=== PATIENT | male | born 1960 | race African-American/Black ===

== ENCOUNTER 2023-06-17 13:44 | Outpatient (CLI) | payer OTHER, SELFPAY ==
--- NOTE | ~2023-06-17 | MR_ITS ---
EXAMINATION: MR cervical spine wo con DATE: 06/17/2023 14:29 INDICATION: Chronic compression fracture of cervical spine. Left-sided weakness. TECHNIQUE: Magnetic resonance imaging (MRI) of the cervical spine was performed without intravenous c ontrast. COMPARISON: None FINDINGS: There is 2 mm retrolisthesis of C5 on C6 and C6 on C7. There is mild chronic height loss of C5 vertebral body. There is moderately decreased disc height at C5-C6 and severely decreased disc he ight at C6-C7. The spinal cord signal intensity is normal. The following disc levels are specifically discussed: C2-C3: There is a central protrusion with annular fissure. There is mild right and moderate left unco vertebral joint osteoarthritis. There is severe right and mild left facet joint osteoarthritis. There is mild left neural foraminal stenosis. There is mild central canal stenosis. C3-C4: The disc does not extend beyond the endplate margin. There is no uncovertebral joint osteoarth ritis. There is moderate right and mild left facet joint osteoarthritis. There is mild right neural f oraminal stenosis. There is no central canal stenosis. C4-C5: The disc does not extend beyond the endplate margin. There is no uncovertebral joint osteoarth ritis. There is moderate right and mild left facet joint osteoarthritis. There is mild right neural f oraminal stenosis. There is no central canal stenosis. C5-C6: The disc is bulging. There is severe bilateral uncovertebral joint osteoarthritis. There is mo derate and mild left facet joint osteoarthritis. There is moderate right and severe left neural teresa inal stenosis. There is moderate central canal stenosis with ventral and dorsal indentation of the sp inal cord. C6-C7: The disc is bulging. There is severe bilateral uncovertebral joint osteoarthritis. There is mi ld bilateral facet joint osteoarthritis. There is mild right and moderate left neural foraminal steno sis. There is mild central canal stenosis with ventral indentation of the spinal cord. C7-T1: The disc does not extend beyond the endplate margin. There is no uncovertebral joint osteoarth ritis. There is mild bilateral facet joint osteoarthritis. There is no neural foraminal stenosis. The re is no central canal stenosis. IMPRESSION: 1. Severe cervical spondylosis. Reviewed, dictated and finalized at location E.
== END 2023-06-17 13:45 | disposition home or self-care (01) ==
DX: M43.02 Spondylolysis, cervical region (principal)
CPT/HCPCS: 72141

== ENCOUNTER 2023-12-15 01:32 | Day surgery (SDC) | payer OTHER, SELFPAY ==
--- NOTE | 2023-11-29 07:54 | P.HP_ITS ---
History of Present Illness History of Present Illness Consent: Risks, benefits, and alternatives have been discussed and questions answered. Patient agrees to proceed with procedure. Chief complaint: nocturia poor urinary stream Narrative: Dionicio Thompson is a 63 year old male follow-up several year history of progressive obstructive and irritable voiding symptoms, most troubled by splaying of urinary stream. This is failed to respond to medical therapy for outlet obstruction. After discussion of options he is agreeable to cystoscopy with urethral dilatation under sedation. He is aware of the risks including, but not limited to, failure to identify and control his voiding symptoms, recurrent urethral stricture, urethral injury and need for short-term catheterization Review of Systems Cardiovascular: Cardiovascular: Denies chest pain, Denies lightheadedness, Denies palpitations and Denies dyspnea Respiratory: Respiratory: Denies dyspnea Gastrointestinal: Gastrointestinal: Denies diarrhea, Denies nausea and Denies vomiting Genitourinary: Genitourinary: Denies hematuria and Denies dysuria Endocrine: Endocrine: Denies palpitations Exam Const: General: no acute distress Resp: Effort & Inspection: normal respiratory effort GI: Inspection: non-distended GI Palp: No abdominal tenderness and No Gu arding due to palpation present (GI) Auscultation: normal bowel sounds Assessment and Plan Assessment and plan (1) Urethral stricture: Code(s): N35.919 - Unspecified urethral stricture, male, unspecified site Status: Acute Assessment and Plan: * Cystoscopy, possible urethral dilatation
[2023-12-06 12:31] VITALS: BMI 36.6
--- NOTE | 2023-12-06 12:58 | PC.NURSE ---
Report to hospital entrance [address] just right of the green pavilion located off [facility], at time _0630_ on date _[id number]_. Planned Procedure Time: _0830_.? Time changes happen often and if your time is changed the preop area will call you the afternoon before. - You and your visitor will be asked to self-screen and do not enter if you have any COVID symptoms. Please call surgeon if you need to reschedule. - A mask is optional within the hospital at this time. Patients may have clear liquids (water, carbonated beverages, clear teas, apple juice) until 3 hours prior to surgery with a maximum of 20 ounces. - No food from midnight until time of surgery and no smoking Take only the following medications with a SIP of water on the morning of surgery: ___Amlodipine, Buspirone, Duloxetine, Mometesone inhaler and Tiotropium bromide inhaler. Albuterol if needed.___ DO NOT STOP ANY OF YOUR OTHER PRESCRIPTION MEDICATIONS PRIOR TO SURGERY EXCEPT THE FOLLOWING Medications to discontinue per physician ___None____ Please no make-up, nail jordanian, hairspray, perfume, deodorant, or body powder the day of surgery.? No jewelry (including any body piercings) or valuables the day of surgery, leave them at home.? Please take a shower or bath the night before, or the morning of, surgery with an antibacterial soap.? Wear comfortable, loose fitting clothing.? - Jewelry must be removed prior to entering the operating room.? Rings and piercings that are not removed may be cut off. - The hospital will not accept responsibility for valuables.? - Please leave all valuables, including medications, at home the day of surgery. If you are going home after surgery, a licensed production truck driver must drive you home.? - NO public transportation without another adult if you receive anesthesia. - We recommend that an adult stay with you for 24 hours following discharge. - We also recommend that you do not drive, make important decision, drink alcoholic beverages, or take any drugs that were not prescribed by your health care provider for at least 24 hours after your discharge time. Follow any additional instructions given to you from your surgeon. Telephone instructions given to _Anna_and asked if any additional questions and then verbalized understanding. Patient advised to call surgeon office or pre surgery nurse liaison [phone] if any additional questions.
[2023-12-15] VITALS (8 sets, daily range): BP systolic 101–147; BP diastolic 63–80; PULSE 61–73; RESP 12–16; TEMP 36.5–36.6; O2SAT 96–100
--- NOTE | 2023-12-15 06:44 | WPDHPUPDATE1 ---
History and Physical Update Update Date/Time: 12/15/23 06:44 History and Physical has been reviewed, including an updated exam of the patient. There are NO changes in the patient's condition. Risks, benefits, and alternatives have been discussed and questions answered. Patient agrees to proceed with procedure.
[2023-12-15] MEDS: LACTATED RINGERS 1,000 ML 30 ML IV CONT (07:00)
[2023-12-15 07:22] LABS: Anion Gap 8 mmol/L (4-12); Blood Urea Nitrogen 11 mg/dL (9-20); Calcium 8.8 mg/dL (8.4-10.2); Carbon Dioxide 27 mmol/L (22-30); Chloride 101 mmol/L (98-107); Estimated CRCL calculation 139 ml/min; Estimated Glomerular Filt Rate > 60; Glucose 91 mg/dL (65-110); Potassium 4.3 mmol/L (3.4-5.0); Sodium 136 mmol/L (137-145)
--- NOTE | 2023-12-15 08:31 | WPDANESEPPF ---
Anes - Initial Pre Proc Eval Procedure: Operation Date: 12/15/23 08:30 Proposed Procedures p Cystoscopy, Urethral Dilatation - Reginald Kruse MD Date/Time: 12/15/23 08:31 Surgeon: Reginald Kruse MD Pre Op Diagnosis: nocturia poor urinary stream Patient Data Age: 63 Gender: M Height: 1.8 m Weight: 118 kg Last Vital Signs Temp 97.8 F 12/15/23 07:26 Pulse 65 12/15/23 07:26 Resp 16 12/15/23 07:26 BP 146/77 H 12/15/23 07:26 Pulse Ox 96 12/15/23 07:26 O2 Del Method Room Air 12/15/23 07:26 Allergies Allergy/AdvReac Type Severity Reaction Status Date / Time lactose Allergy Unknown Unknown Verified 12/06/23 12:46 Home Medications Medication Instructions Recorded Confirmed Type albuterol sulfate 90 mcg/actuation 2 puff inhalation QID PRN Dyspnea 12/06/23 12/06/23 History aerosol inhaler amlodipine 10 mg tablet 10 mg PO DAILY 12/06/23 12/06/23 History aspirin 81 mg tablet 81 mg PO DAILY 12/06/23 12/06/23 History atorvastatin 10 mg tablet 10 mg PO HS 12/06/23 12/06/23 History buspirone 15 mg tablet 15 mg PO BID 12/06/23 12/06/23 History diclofenac sodium 1 % topical gel 2 g topical QID PRN Pain 12/06/23 12/06/23 History duloxetine 60 mg capsule,delayed 60 mg PO DAILY 12/06/23 12/06/23 History release ibuprofen 600 mg tablet 600 mg PO BID PRN Pain 12/06/23 12/06/23 History lidocaine 5 % topical patch 1 patch topical DAILY 12/06/23 12/06/23 History lisinopril 10 mg tablet 10 mg PO DAILY 12/06/23 12/06/23 History metformin 500 mg 24 hr 500 mg PO BID 12/06/23 12/06/23 History tablet,extended release (gastric retention) mometasone 220 mcg/actuation(60 1 inh inhalation BID 12/06/23 12/06/23 History doses) breath activated powder inhaler tamsulosin 0.4 mg capsule 0.4 mg PO HS 12/06/23 12/06/23 History tiotropium bromide 18 mcg capsule 1 cap inhalation DAILY 12/06/23 12/06/23 History with inhalation device Laboratory Tests 12/15/23 07:07 Sodium 136 L mmol/L (137-145) Potassium 4.3 mmol/L (3.4-5.0) Chloride 101 mmol/L (98-107) Carbon Dioxide 27 mmol/L (22-30) Anion Gap 8 mmol/L (4-12) BUN 11 mg/dL (9-20) Creatinine 0.60 L mg/dL (0.7-1.3) Estim Creat Clear Calc 139 ml/min Estimated GFR > 60 (59 - ) Glucose 91 mg/dL (65-110) Calcium 8.8 mg/dL (8.4-10.2) Patient hx anesthesia problems: none Family hx anesthesia problems: none Results Review: All pre-operative results and documents have been reviewed as part of the pre-operative evaluation. [facility] Social History Social History Living arrangements: incarcerated Anes - Eval Final PreProcedure Day of Procedure 12/15/23 08:31 Patient weight: obese Heart: regular rate and rhythm Lungs: clear to auscultation Airway: Mallampati scale class II Neurological: alert and oriented Last oral intake: >/= 8 hours ASA classification: III Emergent: no Anesthetic plan: proceed Anesthesia type and monitoring: general LMA and standard monitoring Results Review: All pre-operative results and documents have been reviewed as part of the pre-operative evaluation. HTN, hyperlipidemia, DM, pt states that he is active walking, no cp or sob. Prev used a cane due to back pains, now improved and without need for assistive device. Informed Consent: The patient's anesthetic plan and its attendant risks and benefits were discussed with the patient/family/POA. Questions were solicited and answers provided to the satisfaction of the patient/family/POA.
[2023-12-15] MEDS: ceFAZolin 2 GM/D5W 50 ML 2 GM/50 ML BAG IVPB (08:35)
--- NOTE | 2023-12-15 08:58 | W.PM.PROC2 ---
Procedure Note - Detailed Date of Procedure 12/15/23 Pre-op Diagnosis Nocturia poor urinary stream Post-op Diagnosis Other (1. Wide-caliber bulbous urethral stricture 2. Trilobar hyperplasia with a moderate-sized median) Procedure Performed Cystoscopy, urethral dilatation Surgeon Reginald Kruse MD Anesthesia General Description of Procedure Patient is brought to the op suite was prepped draped in routine sterile fashion after the uneventful induction of a general LMA anesthetic. Cystoscopy was undertaken with a 19 F rigid cystoscope. He has a wide caliber bulbous urethral stricture which was 1st dilated 18-28 F using Aayush sounds. Repeat cystourethroscopy additionally shows significant prostatic hyperplasia with a prominent median lobe. This is likely contributing, to some extent, to his irritable voiding symptoms. The bladder itself is normal without mucosal hyperemia or rigo neoplasm. There was no intravesical foreign body. Has a single orthotopic ureteral orifice with clear efflux. Patient should continue tamsulosin for his BPH. If voiding symptoms progress he would likely be a good candidate TURP. Drains No Packing No Pathology None sent Complications No immediate complications Condition Stable Disposition PACU
[2023-12-15 09:12] LABS: Glucose Point of Care 98 mg/dl (65-105)
== END 2023-12-15 10:33 | disposition home or self-care (01) ==
PROVIDERS: Visit Provider Urology
PROC: 0T7D8ZZ Dilation of Urethra, Via Natural or Artificial Opening Endoscopic (ICD-10-PCS; CPT 52281; principal; 2023-12-15 08:30)
DX: N35.812 Other bulbous urethral stricture, male (principal); N40.0 Benign prostatic hyperplasia without lower urinary tract symptoms; E66.9 Obesity, unspecified; Z68.36 Body mass index [BMI] 36.0-36.9, adult; Z79.51 Long term (current) use of inhaled steroids; Z79.82 Long term (current) use of aspirin; Z79.1 Long term (current) use of non-steroidal anti-inflammatories (NSAID); Z79.84 Long term (current) use of oral hypoglycemic drugs
CPT/HCPCS: 52281; 36415; 80048; 82948; J0690; J3010; J7120

== ENCOUNTER 2024-09-20 05:24 | Day surgery (SDC) | payer OTHER, SELFPAY ==
--- NOTE | 2024-09-11 07:09 | P.HP_ITS ---
H&P: HPI History of Present Illness Date/Time: 09/11/24 07:09 Chief Complaint: Difficulty urinating Narrative: 09/2023: ?FOV in [facility]: Hx. retention several years ago. ?Ongoing hesitancy, splayed stream and nocturia x8-10. ?Sx. refractory to Finasteride (took > 1-year) and currently tamsulosin ?Hx. chlamydia ?and syphilis in past 11/2023: ?Cysto/urethral dilatation ?- wide-caliber bulbous stricture ?- moderate median lobe and lateral lobe BPH -> probable source of LUTS (to some extent Discussion was undertaken today regarding surgical management of bladder outlet obstruction due to BPH.? He is aware of alternative options including watchful waiting and medical management.? We discussed surgical options for BPH including minimally invasive thermotherapy (traditional microwave and?Prolieve), laser prostatectomy(Indigo and contact lasers such as Green Light), TUNA and TURP.? We discussed risks associated with each including erectile dysfunction, retrograde ejaculation, urinary incontinence, post-operative bleeding and persistant irritable voiding symptoms. Note:?Patient with both outlet obstructive and irritable voiding symptoms. ?Prior cystoscopy showed a wide caliber bulbous urethral stricture and trilobar hyperplasia of the prostate with a moderate-sized median lobe. ?Unfortunately, he has had little improvement in voiding symptoms following urethral dilatation in November 2023 ?and initiation of tamsulosin. ?We discussed alternative treatments for BPH with a focus on TURP, particularly in light of his moderate- sized median lobe. ?He is aware of the potential risks including, but not limited to, postoperative hematuria and retrograde ejaculation. ?We will make arrangements for TURP. Review of Systems Review of Systems: All systems reviewed & are unremarkable except as noted in HPI and below PMFSH Social History Social History Smoking status: Former smoker Living arrangements: incarcerated Meds Home Medications and Allergies Home Medications ?Medication ?Instructions ?Recorded ?Confirmed ?Type albuterol sulfate 90 mcg/actuation 2 puff inhalation QID PRN Dyspnea 12/06/23 0 12/06/23 History aerosol inhaler amlodipine 10 mg tablet 10 mg PO DAILY 12/06/23 12/06/23 History aspirin 81 mg tablet 81 mg PO DAILY 12/06/23 12/06/23 History atorvastatin 10 mg tablet 10 mg PO HS 12/06/23 12/06/23 History buspirone 15 mg tablet 15 mg PO BID 12/06/23 12/06/23 History diclofenac sodium 1 % topical gel 2 g topical QID PRN Pain 12/06/23 12/06/23 History duloxetine 60 mg capsule,delayed 60 mg PO DAILY 12/06/23 12/06/23 History release ibuprofen 600 mg tablet 600 mg PO BID PRN Pain 12/06/23 12/06/23 History lidocaine 5 % topical patch 1 patch topical DAILY 12/06/23 12/06/23 History lisinopril 10 mg tablet 10 mg PO DAILY 12/06/23 12/06/23 History metformin 500 mg 24 hr 500 mg PO BID 12/06/23 12/06/23 History tablet,extended release (gastric retention) mometasone 220 mcg/actuation(60 1 inh inhalation BID 12/06/23 12/06/23 History doses) breath activated powder inhaler tamsulosin 0.4 mg capsule 0.4 mg PO HS 12/06/23 12/06/23 History tiotropium bromide 18 mcg capsule 1 cap inhalation DAILY 12/06/23 12/06/23 History with inhalation device Allergies Allergy/AdvReac Type Severity Reaction Status Date / Time lactose Allergy Unknown Unknown Verified 08/23/24 13:17 Exam Const: General: no acute distress Resp: Effort & Inspection: normal respiratory effort GI: Inspection: non-distended GI Palp: No abdominal tenderness and No Guarding due to palpation present (GI) Auscultation: normal bowel sounds Assessment and Plan Assessment and plan (1) BPH loc w urin obs/LUTS: Code(s): N40.1 - Benign prostatic hyperplasia with lower urinary tract symptoms Status: Acute Assessment and Plan: * TURP
[2024-09-18 08:43] VITALS: BMI 37.1
--- NOTE | 2024-09-18 09:03 | PC.NURSE ---
Report to hospital entrance 7 to the right of the green pavilion by 's parking located off [facility], at time _0600_ on date _[id number]_. Planned Procedure Time: _0730_.? Patient is scheduled to stay overnight after surgery. Time changes happen often and if your time is changed the preop area will call you the afternoon before. - You and your visitor will be asked to self-screen and do not enter if you have any COVID symptoms. Please call surgeon if you need to reschedule. - A mask is optional within the hospital at this time. Patients may have clear liquids (water, carbonated beverages, clear teas, apple juice) until 3 hours prior to surgery with a maximum of 20 ounces. - No food from midnight until time of surgery and no smoking, or chewing tobacco (or any form of nicotine). No chewing gum, candy or mints. Take only the following medications with a SIP of water on the morning of surgery: ___Buspirone and both inhalers.___ DO NOT STOP ANY OF YOUR OTHER PRESCRIPTION MEDICATIONS PRIOR TO SURGERY EXCEPT THE FOLLOWING Hold all vitamins and supplements for 3 days per anesthesiologist. Medications to discontinue per physician Aspirin and Meloxicam if instructed by 's office.___ Date to take last dose____ Please no make-up, nail macanese, hairspray, perfume, deodorant, or body powder the day of surgery.? No jewelry (including any body piercings) or valuables the day of surgery, leave them at home.? Please take a shower or bath the night before, or the morning of, surgery with an antibacterial soap.? Wear comfortable, loose fitting clothing.? - Jewelry must be removed prior to entering the operating room.? Rings and piercings that are not removed may be cut off. - The hospital will not accept responsibility for valuables.? - Please leave all valuables, including medications, at home the day of surgery. Follow any additional instructions given to you from your surgeon. Telephone instructions given to __Maria Elena Field__and asked if any additional questions and then verbalized understanding. Patient advised to call surgeon office or pre surgery nurse liaison [phone] if any additional questions.
[2024-09-20] VITALS (16 sets, daily range): BP systolic 107–192; BP diastolic 58–100; PULSE 81–96; RESP 11–24; TEMP 36.2–37.2; O2SAT 94–98; BMI 37.8
--- NOTE | 2024-09-20 05:58 | ECG_ITS ---
Test Date: 2024-09-20 07:04:34 Measurements Intervals [place] Rate: 82 P: 67 LA: 179 QRS: -6 QRSD: 96 T: 46 QT: 381 QTc: 447 Interpretive Statements SINUS RHYTHM NORMAL ECG No previous ECG available for comparison Electronically Signed On 09-20-2024 07:46:43 CDT by Pablo Narvaez D.O.
--- NOTE | 2024-09-20 06:15 | WPDHPUPDATE1 ---
History and Physical Update Update Date/Time: 09/20/24 06:15 History and Physical has been reviewed, including an updated exam of the patient. There are NO changes in the patient's condition. Risks, benefits, and alternatives have been discussed and questions answered. Patient agrees to proceed with procedure.
[2024-09-20] MEDS: LACTATED RINGERS 1,000 ML 30 ML IV CONT ×2 (06:20→08:23)
[2024-09-20 06:38] LABS: Glucose Point of Care 116 mg/dl (65-105)
[2024-09-20 06:39] LABS: Anion Gap 11 mmol/L (4-12); Blood Urea Nitrogen 10 mg/dL (9-20); Calcium 8.5 mg/dL (8.4-10.2); Carbon Dioxide 23 mmol/L (22-30); Chloride 107 mmol/L (98-107); Estimated CRCL calculation 128 ml/min; Estimated Glomerular Filt Rate > 60; Glucose 120 mg/dL (65-110); Potassium 4.5 mmol/L (3.4-5.0); Sodium 141 mmol/L (137-145)
--- NOTE | 2024-09-20 06:48 | P.PNAN_ITS ---
Anes - Initial Pre Proc Eval Procedure: Operation Date: 09/20/24 07:30 Proposed Procedures p Trans Urethral Resection Prostate - Reginald Kruse MD Date/Time: 09/20/24 06:48 Surgeon: Reginald Kruse MD Pre Op Diagnosis: BPH Patient Data Age: 64 Gender: M Height: 1.8 m Weight: 122.8 kg Last Vital Signs Temp 36.2 C L 09/20/24 06:00 Pulse 86 09/20/24 06:00 Resp 16 09/20/24 06:00 BP 168/92 H 09/20/24 06:00 Pulse Ox 96 09/20/24 06:00 O2 Del Method Room Air 09/20/24 06:00 Allergies Allergy/AdvReac Type Severity Reaction Status Date / Time lactose Allergy Unknown Unknown Verified 09/20/24 06:34 Home Medications ?Medication ?Instructions ?Recorded ?Confirmed ?Type albuterol sulfate 90 mcg/actuation 2 puff inhalation QID PRN Dyspnea 12/06/23 09/18/24 History aerosol inhaler aspirin 81 mg tablet 81 mg PO DAILY 12/06/23 09/20/24 History atorvastatin 10 mg tablet 10 mg PO HS 12/06/23 09/20/24 History buspirone 15 mg tablet 15 mg PO BID 12/06/23 09/20/24 History diclofenac sodium 1 % topical gel 2 g topical QID PRN Pain 12/06/23 09/18/24 History metformin 500 mg 24 hr 500 mg PO BID 12/06/23 09/20/24 History tablet,extended release (gastric retention) mometasone 220 mcg/actuation(60 1 inh inhalation BID 12/06/23 09/18/24 History doses) breath activated powder inhaler tamsulosin 0.4 mg capsule 0.4 mg PO HS 12/06/23 09/20/24 History tiotropium bromide 18 mcg capsule 1 cap inhalation DAILY 12/06/23 09/18/24 History with inhalation device amitriptyline 50 mg tablet 50 mg PO HS 09/18/24 09/20/24 History meloxicam 7.5 mg tablet 7.5 mg PO DAILY PRN pain 09/18/24 09/20/24 History trazodone 50 mg tablet 50 mg PO HS 09/18/24 09/20/24 History Laboratory Tests 09/20/24 09/20/24 06:22 06:32 Sodium 141 mmol/L (137-145) Potassium 4.5 mmol/L (3.4-5.0) Chloride 107 mmol/L (98-107) Carbon Dioxide 23 mmol/L (22-30) Anion Gap 11 mmol/L (4-12) BUN 10 mg/dL (9-20) Creatinine 0.66 L mg/dL (0.7-1.3) Estim Creat Clear Calc 128 ml/min Estimated GFR > 60 (59 - ) Glucose 120 H mg/dL (65-110) POC Capillary Glucose 116 H mg/dl (65-105) Calcium 8.5 mg/dL (8.4-10.2) Patient hx anesthesia problems: none Family hx anesthesia problems: none Results Review: All pre-operative results and documents have been reviewed as part of the pre- operative evaluation. [facility] Past Medical History Medical History (Updated 09/20/24 @ 06:48 by Daniel Forrester DO) Anxiety Diabetes type 2, controlled COPD (chronic obstructive pulmonary disease) Hyperlipidemia Hypertension Social History Social History Smoking status: Former smoker Other substance usage details: Hx stimulant abuse. Living arrangements: incarcerated Anes - Eval Final PreProcedure Day of Procedure 09/20/24 06:48 Patient weight: obese Heart: regular rate and rhythm Lungs: clear to auscultation Airway: Mallampati scale class II Neurological: alert and oriented Last oral intake: >/= 8 hours ASA classification: III Emergent: no Anesthetic plan: proceed Anesthesia type and monitoring: general LMA and standard monitoring Results Review: All pre-operative results and documents have been reviewed as part of the pre- operative evaluation. Informed Consent: The patient's anesthetic plan and its attendant risks and benefits were discussed with the patient/family/POA. Questions were solicited and answers provided to the satisfaction of the patient/family/POA.
[2024-09-20] MEDS: ceFAZolin 3 GM/D5W 100 ML 100 ML IVPB (07:37)
[2024-09-20] MEDS: LIDOCAINE 2% GEL UROJET 10 ML PKG MUCOUS MEM (07:41)
--- NOTE | 2024-09-20 08:02 | S_PTH ---
PATIENT: Dionicio Thompson LOC: [facility] U#:[id number] AGE/SX: 64/M ROOM: RE09/20/[address]: Reginald Kruse MD : 1960 BED: DIS: 09/21/2024 SPEC #: [id number] RECD: 09/20/24 10:22 STATUS: GRISELDA REQ #: [id number] MICHEAL: 09/20/24 08:[address]: Reginald Kruse DEPT: [facility] Surgical RECD BY: Carlene San ENTERED: 09/20/24 10:23 SP TYPE: Surgical OTHR DR: UNKNOWN,DOCTOR Tissues: A - Prostate Turp Procedures: Hematoxylin and Eosin Stain Gross and Microscopic Level 4
[2024-09-20 08:27] LABS: Glucose Point of Care 113 mg/dl (65-105)
--- NOTE | 2024-09-20 08:31 | W.PM.PROC2 ---
Procedure Note - Detailed Date of Procedure 09/20/24 Pre-op Diagnosis BPH Post-op Diagnosis Same Procedure Performed TURP Surgeon Reginald Kruse MD Anesthesia General Description of Procedure The patient was brought to the operative suite where he is prepped and draped in routine sterile fashion while in the dorsal lithotomy position after the uneventful induction of a general LMA anesthetic. A 24 [place] resectoscope sheath was placed into his bladder. He had no urethral strictures. The patient had trilobar hyperplasia with a large median lobe. The bladder itself was endoscopically normal, showing no mucosal hyperemia, intravesical neoplasm or foreign bodies. There was a single, orthotopic ureteral orifice bilaterally. These orifices were identified and preserved throughout the remainder of the procedure. Attention was first turned to resection of the median lobe. This resection was undertaken from the bladder neck to the verumontanum and carried out until the transverse fibers of the bladder neck were identified. The left lateral lobe was then resected starting at the 6 o'clock position, working counter clockwise to the 12 o'clock position. Again, resection was carried out from the bladder neck to the verumontanum until the capsular fibers of the prostate were identified. The right lateral lobe was resected in a similar fashion starting at the 6 o'clock position working clockwise to the 12 o'clock position and carried out until the capsular fibers of the prostate were identified. Apical tissue was then circumferentially resected. All chips were evacuated from the bladder using an [employer] evacuator. Hemostasis was obtained with electric cautery. The ureteral orifices were again inspected and found to be without injury. Estimated blood loss throughout this procedure was 50cc. The patient was taken to recovery room having tolerated this well. Drains Yes Packing Yes Pathology Yes Complications No immediate complications Condition Stable
--- NOTE | 2024-09-20 09:19 | SUR.PHASEI ---
0915: Patient meets PACU discharge criteria, unit bed unavailable at this time. Patient placed in extended recovery status.
[2024-09-20] MEDS: busPIRone HCL 5 MG TABLET 15 MG PO (12:42)
[2024-09-20] MEDS: metFORMIN HCL XR 500 MG TAB.SR.24H PO ×2 (12:42→16:04)
[2024-09-20] MEDS: DOCUSATE SODIUM 100 MG CAPSULE PO ×2 (12:42→16:04)
[2024-09-20] MEDS: DEXTROSE 5%/LACTATED RINGERS 1,000 ML 125 ML IV CONT (12:43)
[2024-09-20] MEDS: lisinopriL 20 MG TABLET PO (14:11)
[2024-09-20] MEDS: ceFAZolin 1 GM/NS 50 ML 1 GM/50 ML BAG IVPB ×2 (16:05→22:44)
[2024-09-20] MEDS: AMITRIPTYLINE HCL 25 MG TABLET 50 MG PO (21:18)
[2024-09-20] MEDS: ATORVASTATIN 10 MG TABLET PO (21:18)
[2024-09-20] MEDS: traZODone HCL 50 MG TABLET PO (21:18)
[2024-09-20] MEDS: FLUTICASONE PROP 44 MCG (*SP) 10.6 GM 2 PUFF INHALATION (22:05)
[2024-09-21 00:34] VITALS: BP 169/73; PULSE 96; RESP 20; TEMP 36.9; O2SAT 95
[2024-09-21 05:25] VITALS: BP 185/97; PULSE 92; RESP 20; TEMP 37; O2SAT 95
[2024-09-21] MEDS: CEPHALEXIN 500 MG CAPSULE PO ×2 (05:41→11:05)
[2024-09-21 06:20] LABS: Hematocrit 40.4 % (42.0-52.0); Hemoglobin 12.3 g/dL (14.0-18.0)
[2024-09-21 06:47] LABS: Anion Gap 7 mmol/L (4-12); Blood Urea Nitrogen 8 mg/dL (9-20); Calcium 8.7 mg/dL (8.4-10.2); Carbon Dioxide 26 mmol/L (22-30); Chloride 105 mmol/L (98-107); Estimated CRCL calculation 108 ml/min; Estimated Glomerular Filt Rate > 60; Glucose 103 mg/dL (65-110); Potassium 4.6 mmol/L (3.4-5.0); Sodium 138 mmol/L (137-145)
--- NOTE | 2024-09-21 07:13 | WPDUROPN2 ---
Progress Note: A&P Assessment and Plan (1) BPH loc w urin obs/LUTS: Code(s): N40.1 - Benign prostatic hyperplasia with lower urinary tract symptoms Status: Acute Assessment and Plan: Doing well POD#1 status post TURP Stop CBI now and voiding trial later this morning if urine remains clear Subjective Subjective Date/Time Seen: 09/21/24 07:13 Interval history: Comfortable, slept well Review of Systems Review of Systems: All systems reviewed & are unremarkable except as noted in HPI and below Exam Const: General: no acute distress Resp: Effort & Inspection: normal respiratory effort GI: Inspection: non-distended GI Palp: No abdominal tenderness and No Guarding due to palpation present (GI) Auscultation: normal bowel sounds Urinary Catheter: Urinary Catheter: patent and draining and urine clear Objective Data Vital Signs Vital Signs: Vital Signs - 24 hr 09/20/24 08:23 09/20/24 08:40 09/20/24 08:55 Temperature 97.5 F L Pulse Rate 95 96 89 Respiratory Rate 11 L 12 12 Blood Pressure 107/58 L 142/89 H 123/86 Pulse Oximetry 97 95 98 Oxygen Delivery Simple Face Mask Simple Face Mask Simple Face Mask Oxygen Flow Rate 8 8 8 09/20/24 08:56 09/20/24 09:10 09/20/24 09:40 Temperature Pulse Rate 86 84 Respiratory Rate 12 12 Blood Pressure 163/94 H 159/91 H Pulse Oximetry 94 95 Oxygen Delivery Room Air Room Air Room Air Oxygen Flow Rate 09/20/24 10:10 09/20/24 10:40 09/20/24 11:10 Temperature Pulse Rate 83 85 83 Respiratory Rate 12 16 12 Blood Pressure 162/96 H 167/98 H 176/99 H Pulse Oximetry 96 96 96 Oxygen Delivery Room Air Room Air Room Air Oxygen Flow Rate 09/20/24 11:40 09/20/24 12:05 09/20/24 12:28 Temperature 97.9 F Pulse Rate 83 81 83 Respiratory Rate 14 14 20 Blood Pressure 161/100 H 167/98 H 178/92 H Pulse Oximetry 96 97 98 Oxygen Delivery Room Air Room Air Oxygen Flow Rate 09/20/24 12:58 09/20/24 13:58 09/20/24 17:21 Temperature Pulse Rate 89 86 83 Respiratory Rate 20 20 Blood Pressure 192/100 H 173/88 H 181/94 H Pulse Oximetry 97 96 97 Oxygen Delivery Oxygen Flow Rate 09/20/24 21:15 09/20/24 21:45 09/21/24 00:34 Temperature 99 F 98.4 F Pulse Rate 91 96 Respiratory Rate 24 H 20 Blood Pressure 174/90 H 169/73 H Pulse Oximetry 95 95 Oxygen Delivery Room Air Oxygen Flow Rate 09/21/24 05:25 Temperature 98.6 F Pulse Rate 92 Respiratory Rate 20 Blood Pressure 185/97 H Pulse Oximetry 95 Oxygen Delivery Oxygen Flow Rate Intake/Output Intake/Output: Intake & Output 09/18/24 09/19/24 09/20/24 09/21/24 23:59 23:59 23:59 23:59 Intake Total 1989 Output Total 6550 Balance -4560 Meds/Results Medications: Active Medications Generic Name Dose Route Start Last Admin Trade Name Freq PRN Reason Stop Dose Admin Hydrocodone Bitart/Acetaminophen 1 tab 09/20/24 12:13 Hydrocodone/Acetaminophen (*Crx) 5-325 Mg Tablet PO Q4H PRN Pain Rated 1-6 Albuterol 2 puff 09/20/24 12:13 Albuterol Sulfate (*Sp) Aerosol 1 Puff INHALATION QID PRN Dyspnea Amitriptyline HCl 50 mg 09/20/24 21:00 09/20/24 21:18 Amitriptyline Hcl 25 Mg Tablet PO 50 mg HS VISH Administration Atorvastatin Calcium 10 mg 09/20/24 21:00 09/20/24 21:18 Atorvastatin 10 Mg Tablet PO 10 mg HS VISH Administration Buspirone HCl 15 mg 09/20/24 12:13 09/20/24 22:26 Buspirone Hcl 5 Mg Tablet PO Not Given Q12HR VISH Cephalexin HCl 500 mg 09/21/24 06:00 09/21/24 05:41 Cephalexin 500 Mg Capsule PO 500 mg Q6HR VISH Administration Diclofenac Sodium 1 applic 09/20/24 12:13 Diclofenac Sodium 1% 100 Gm Gel (*Bkc) TOPICAL QID PRN Pain Docusate Sodium 100 mg 09/20/24 12:13 09/20/24 16:04 Docusate Sodium 100 Mg Capsule PO 100 mg BID VISH Administration Fluticasone Propionate 2 puff 09/20/24 20:00 09/20/24 22:05 Fluticasone Prop 44 Mcg (*Sp) 10.6 Gm INHALATION 2 puff Q12HRT [facility] Administration Hyoscyamine 0.125 mg 09/20/24 12:13 Hyoscyamine Sulfate 0.125 Mg Tablet SUBLINGUAL Q6H PRN Bladder Spasm Lisinopril 20 mg 09/20/24 14:05 09/20/24 14:11 Lisinopril 20 Mg Tablet PO 20 mg QAM [facility] Administration Metformin HCl 500 mg 09/20/24 12:13 09/20/24 16:04 Metformin Hcl Xr 500 Mg Tab.Sr.24h PO 500 mg BIDWM [facility] Administration Morphine Sulfate 2 mg 09/20/24 12:13 Morphine Sulfate (*Crx) 2 Mg/Ml Inj IV PUSH Q2H PRN Pain Rated 7-10 Naloxone HCl 0.1 mg 09/20/24 12:13 Naloxone Hcl 0.4 Mg/Ml Vial IV PUSH Q2M PRN Opiate Reversal Ondansetron HCl 4 mg 09/20/24 12:13 Ondansetron Inj 4 Mg/2 Ml Vial IV PUSH Q12H PRN Nausea And Vomiting Oxycodone HCl 5 mg 09/20/24 07:04 Oxycodone Hcl (*Crx) 5 Mg Tab Ir PO ONCE PRN Pain Trazodone HCl 50 mg 09/20/24 21:00 09/20/24 21:18 Trazodone Hcl 50 Mg Tablet PO 50 mg HS [facility] Administration Umeclidinium [place] 1 puff 09/21/24 08:00 Umeclidinium [place] 62.5 Mcg Ellipta INHALATION DAILYRT [facility] Labs Labs: Laboratory Results - last 24 hr 09/20/24 09/21/24 08:25 06:04 Hgb 12.3 L Hct 40.4 L Sodium 138 Potassium 4.6 Chloride 105 Carbon Dioxide 26 Anion Gap 7 BUN 8 L Creatinine 0.79 Estim Creat Clear Calc 108 Estimated GFR > 60 Glucose 103 POC Capillary Glucose 113 H Calcium 8.7
[2024-09-21] MEDS: UMECLIDINIUM BROMIDE 62.5 MCG ELLIPTA 1 PUFF INHALATION (08:18)
[2024-09-21] MEDS: FLUTICASONE PROP 44 MCG (*SP) 10.6 GM 2 PUFF INHALATION (08:19)
[2024-09-21] MEDS: busPIRone HCL 5 MG TABLET 15 MG PO (09:10)
[2024-09-21] MEDS: lisinopriL 20 MG TABLET PO (09:10)
[2024-09-21] MEDS: DOCUSATE SODIUM 100 MG CAPSULE PO (09:10)
[2024-09-21] MEDS: metFORMIN HCL XR 500 MG TAB.SR.24H PO (09:10)
[2024-09-21 09:58] VITALS: BP 168/89; PULSE 87; RESP 20; TEMP 36.1; O2SAT 94
--- NOTE | 2024-09-21 12:07 | P.DS_ITS ---
DS: Admitting Diagnosis Discharge Date 09/21/2024 Admitting Diagnosis BPH DS: Summary Hospital Course Hospital Course: This patient with longstanding prostatism refractory for medical management was admitted on the morning of his planned TURP. The procedure was undertaken on that same day in an uneventful fashion. His post-operative course was, likewise, uneventful. On the evening of the procedure he was tolerating a diet. On POD#1 his urine was clear on CBI. The urine remained clear and, therefore, the catheter was removed late morning. The patient was observed for several pam rs, until he demonstrated he could void effectively without significant hematuria. He was discharged with careful instruction on limiting physical activity x2 weeks and plans to f/ in 2-3 weeks. At discharge he was comfortable and tolerating a diet. Time Spent with Patient Time attestation: Total time spent providing and/or coordinating discharge services: DS: Data Data Completed and Pending Completed studies during hospitalization: Pending at discharge 09/20/24 08:02 Surgical [PTH] Routine Labs on day of discharge: Labs from last 24 hours 09/21/24 06:04 Hgb 12.3 L Hct 40.4 L Sodium 138 Potassium 4.6 Chloride 105 Carbon Dioxide 26 Anion Gap 7 BUN 8 L Creatinine 0.79 Estim Creat Clear Calc 108 Estimated GFR > 60 Glucose 103 Calcium 8.7 Discharge Plan Discharge Patient Disposition: Home Discharge Instructions: 1) Activity: No lifting/straining >15lbs. x2 weeks. 2) Diet: Resume normal pre-admission diet. 3) Follow-up: 2-3 weeks. Patient Language: Gabonese Stand Alone Forms: General Discharge Instructions Discharge Orders: Discharge Order (Routine); Ordered 09/21/24 Ordered By: Reginald Kruse Discharge Medications: New hydrocodone-acetaminophen 5-325 mg tablet 1 - 2 tablet PO Q6H PRN (Reason: pain) Qty: 20 0RF sulfamethoxazole-trimethoprim 800-160 mg tablet 1 tablet PO Q12H Qty: 6 0RF docusate sodium [Colace] 100 mg capsule 100 mg PO DAILY Qty: 30 0RF Continued atorvastatin 10 mg Tablet 10 mg PO HS albuterol sulfate 90 mcg/actuation Hfa Aerosol Inhaler 2 puff INHALATION QID PRN (Reason: Dyspnea) buspirone 15 mg Tablet 15 mg PO BID tiotropium bromide 18 mcg Capsule, W/Inhalation Device 1 cap INHALATION DAILY Rx Instructions: puncture 1 cap using device; one dose = 2 inhalations mometasone 220 mcg/ actuation (60) Aerosol Powdr Breath Activated 1 inh INHALATION BID metformin 500 mg Tablet,Er Shana.Retention 24 Hr 500 mg PO BID diclofenac sodium 1 % Gel 2 g TOPICAL QID PRN (Reason: Pain) Rx Instructions: Apply topically to the affected areas twice daily as needed. amitriptyline 50 mg tablet 50 mg PO HS meloxicam 7.5 mg tablet 7.5 mg PO DAILY PRN (Reason: pain) trazodone 50 mg tablet 50 mg PO HS lisinopril 20 mg tablet 20 mg PO DAILY Held aspirin 81 mg Tablet 81 mg PO DAILY Hold Instructions: Resume on 09/24/24. Discontinued tamsulosin 0.4 mg Capsule 0.4 mg PO HS Patient Comments: Take 2 capsules at HS
--- NOTE | 2024-09-21 12:51 | PC.NURSE ---
Pt. voided without issue following urinary catheter removal. Dr. Kruse signed narcotic script and all paper scripts and discharge instructions were given to the two guards watching over the patient.
== END 2024-09-21 13:15 ==
LOC: ANHSURGERY 05:58 → ANH2MED 12:18
PROVIDERS: Anesthesiology; Visit Provider Urology
PROC: 0VT08ZZ Resection of Prostate, Via Natural or Artificial Opening Endoscopic (ICD-10-PCS; CPT 52601; principal; 2024-09-20 07:30)
DX: N40.1 Benign prostatic hyperplasia with lower urinary tract symptoms (principal); N13.8 Other obstructive and reflux uropathy; N41.1 Chronic prostatitis; N34.2 Other urethritis; Z87.891 Personal history of nicotine dependence; E11.9 Type 2 diabetes mellitus without complications; E66.9 Obesity, unspecified; Z68.37 Body mass index [BMI] 37.0-37.9, adult
CPT/HCPCS: 52601; 36415; 80048; 82948; 85014; 85018; 88305; 93005; A9270; C1757; J0690; J1171; J2003; J2704; J3010; J7120; J7121

== ENCOUNTER 2024-12-14 14:16 | Outpatient (CLI) | payer OTHER, SELFPAY ==
--- NOTE | ~2024-12-14 | MR_ITS ---
EXAMINATION: MR lumbar spine wo con DATE: 12/14/2024 15:01 INDICATION: Low back pain. TECHNIQUE: Magnetic resonance imaging (MRI) of the lumbar spine was performed without intravenous contrast. Sequences included sagittal T2-weighted FSE, sagittal T2-weighted FS FSE, sagittal T1-weighted FSE, and axial T2-weighted FSE. COMPARISON: None FINDINGS: There is 8 degrees levocurvature of lumbar spine. There is 3 mm retrolisthesis of L1 on L2, L2 on L3, L3 on L4, and L4 on L5. Vertebral body heights are normal. There is mildly decreased disc height at L1-L2, L2-L3, and L3-L4, moderately decreased disc height at 4-L5, and mildly decreased disc height at L5-S1. Epidural lipomatosis is noted. The distal spinal cord signal intensity is normal. The conus medullaris is at L1. The following disc levels are specifically discussed: L1-L2: The disc is bulging. There is moderate right and severe left facet joint osteoarthritis. There is moderate bilateral neural foraminal stenosis. There is mild central canal stenosis. L2-L3: The disc is bulging. There is severe bilateral facet joint osteoarthritis. There is moderate bilateral neural foraminal stenosis. There is mild central canal stenosis. L3-L4: The disc is bulging. There is severe bilateral facet joint osteoarthritis. There is moderate right and mild left neural foraminal stenosis. There is mild central canal stenosis. L4-L5: The disc is bulging and has an annular fissure. There is severe bilateral facet joint osteoarthritis. There is moderate bilateral neural foraminal stenosis. There is moderate central canal stenosis. L5-S1: The disc is bulging. There is severe bilateral facet joint osteoarthritis. There is mild bilateral neural foraminal stenosis. There is mild central canal stenosis. There is moderate stenosis of right lateral recess. IMPRESSION: 1. Moderate lumbar spondylosis. Reviewed, dictated and finalized at location E.
--- NOTE | ~2024-12-14 | MR_ITS ---
EXAMINATION: MR cervical spine wo con DATE: 12/14/2024 15:00 INDICATION: Neck pain TECHNIQUE: Magnetic resonance imaging (MRI) of the cervical spine was performed without intravenous contrast. Sequences included sagittal T2-weighted FSE, sagittal T2-weighted FS FSE, sagittal T1-weighted FSE, axial MERGE and axial T2- weighted FSE. COMPARISON: 06/17/2023 FINDINGS: Unchanged 2 mm retrolisthesis C5 on C6 and C6 on C7. Moderate atlantoaxial osteoarthritis. Unchanged chronic mild anterior vertebral body height loss at C5. Remaining cervical vertebral body heights are normal. Severe disc height loss at C6-C7 and moderate disc height loss at C5-C6. There is fibrofatty degenerative endplate changes at C6-C7. Marrow signal is otherwise unremarkable. Cord signal intensity is normal. The following disc levels are specifically discussed: C2-C3: Left paracentral annular fissure with unchanged very small disc protrusion. There is mild right and moderate left uncovertebral joint osteoarthritis. There is mild left and severe right facet joint osteoarthritis. There is mild left neural foraminal stenosis. There is mild central canal stenosis. C3-C4: The disc does not extend beyond the endplate margin. There is mild left and moderate right uncovertebral joint osteoarthritis. There is mild bilateral facet joint osteoarthritis. There is no neural foraminal stenosis. There is no central canal stenosis. C4-C5: Disc is mildly bulging. There is mild bilateral uncovertebral joint osteoarthritis. There is mild left and moderate right facet joint osteoarthritis. There is mild bilateral neural foraminal stenosis. There is no central canal stenosis. C5-C6: Disc is bulging. There is severe bilateral uncovertebral joint osteoarthritis. There is mild left and moderate right facet joint osteoarthritis. There is severe left and moderate to severe right neural foraminal stenosis. There is moderate central canal stenosis with mild indentation of the ventral surface of the cord. C6-C7: Disc is bulging. There is severe bilateral uncovertebral joint osteoarthritis. There is mild bilateral facet joint osteoarthritis. There is moderate right and moderate to severe left neural foraminal stenosis. There is mild central canal stenosis with right-sided predominant indentation of the v entral surface of the cord. C7-T1: The disc does not extend beyond the endplate margin. There is mild left uncovertebral joint osteoarthritis. There is mild right and moderate left facet joint osteoarthritis. There is mild left neural foraminal stenosis. There is no central canal stenosis. IMPRESSION: 1. Minimal progression of severe cervical spondylosis. Reviewed, dictated and finalized at location A.
--- OUTSIDE RECORDS SUMMARY | 2024-12-14 14:20 | XMS_ITS | Clinical Summary ---
Author Organization [facility] Address [address] [place] [address] Care Team Providers Care Electrician Substation Name Role Phone Keon Fulton MD, Nas Primary Care Provider [phone] Encounters Date Type Department Care Team Description 11/23/2024 10:20 AM CDT - 11/23/2024 11:59 PM CDT Hospital Encounter [facility] [address] [place] [address] Nas Herbert MD Discharge Disposition: Home or Self Care (Routine Discharge) 11/23/2024 Travel from Last 3 Months Social History Tobacco Use Types Packs/Day Years Used Date Smoking Tobacco: Never Assessed Sex and Gender Information Value Date Recorded Sex Assigned at Male 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 Gender Identity Not on file Sexual Orientation Not on file Plan of Treatment Upcoming Encounters Date Type Department Care Team (Late st Contact Info) Description 01/04/2025 7:00 AM CDT Appointment [facility] [address] [place] [address] Nas Herbert MD [facility] [address] [place], [place] [id number] Bharat Myers, PT [address] [place] [address] Health Maintenance Due Date Last Done Comments Colorectal Cancer Screening Colonoscopy (10 Years) 1960 Hepatitis C 08/15/1977 DTaP, Tdap and Td Vaccines ( 1 - Tdap) 08/15/1978 Pneumococcal Vaccine: 50+ Ye ars (1 of 2 - PCV) 08/15/1978 Zoster Vaccines (1 of 2) 08/15/2009 RSV Immunization or 60+ Years (1 - Risk 60-74 years 1-dose series) 2019 PHQ-2 (Physician [place]) 03/28/2024 COVID-19 Vaccine (1 - 2023-2 5 season) 2024 Meningococcal B Vaccine Aged Out No l onger eligible based on patient's age to complete this topic Meningococcal Vaccine Aged Out No alejo stacie eligible based on patient's age to complete this topic RSV Immunizations Under 20 Months Aged Out No longer eligible based on patient's age to complete this topic Procedures Procedure Name Priority Date/Time Associated Diagnosis Comments CT CERV SPINE WO CON Routine 11/23/2024 10:30 AM CDT Cervical disc disorder from Last 3 Months Results * CT CERV SPINE WO CON (11/23/2024 10:30 AM CDT) Anatomical Region Laterality Modality Spine Computed Tomogra phy 11/26/2024 7:29 AM CDT Impressions 11/26/2024 7:35 AM CDT IMPRESSION: 1. No acute osseous abnormalities. 2. Moderately severe multilevel degenerative changes with spinal stenosis and neuroforamen narrowing, most prominent at C5-6 and C6-7. Consider further evaluation with MRI to better assess the degree of spinal stenosis and nerve root impingement. Referred By: NAS HERBERT V Interpreted By: Marito Mccurdy MD, 11/26/2024 7:29 AM Narrative 11/26/2024 7:35 AM CDT [address] [place] [address] EXAMINATION: CT CERVICAL SPINE WITHOUT CONTRAST. EXAM DATE/TIME: 11/23/2024 10:21 AM REASON FOR EXAM: cervical disc disorder Neck pain COMPARISON: None TECHNIQUE: Axial images of the cervical spine without intravenous contrast. A dose lowering technique was used for this procedure, which may include, but is not limited to, dose reduction technique, automated exposure control, iterative reconstruction, ALARA (As Low As Reasonably Achievable), or Image Gently techniques. FINDINGS: Limited evaluation of the lung apices is unremarkable. Limited evaluation of the paravertebral soft tissues demonstrates no significant soft tissue swelling, mass, or fluid collection. Moderately severe multilevel endplate and facet joint degenerative change. Most prominent at C5-6 and C6-7. Minimal grade 1 retrolisthesis of C6 on C7. Moderately large anterior bridging osteophytes at all levels.. Laterally severe spinal stenosis at C6-C7 due to degenerative change. Moderate bilateral neuroforamen narrowing. Moderate spinal stenosis at C5-6 due to degenerative change with moderate bilateral neuroforamen narrowing.. Other disc spaces without gross spinal stenosis. Odontoid is intact. Occipital condyles intact. No evidence of fracture or malalignment. Procedure Note Marito Mccurdy MD - 11/26/[address] [place] [address] EXAMINATION: CT CERVICAL SPINE WITHOUT CONTRAST. EXAM DATE/TIME: 11/23/2024 10:21 AM REASON FOR EXAM: cervical disc disorder Neck pain COMPARISON: None TECHNIQUE: Axial images of the cervical spine without intravenouscontrast. A dose lowering technique was used for this procedure, which may include,but is not limited to, dose reduction technique, automated exposurecontrol, iterative reconstruction, ALARA (As Low As ReasonablyAchievable), or Image Gently techniques. FINDINGS: Limited evaluation of the lung apices is unremarkable. Limited evaluation of the paravertebral soft tissues demonstrates nosignificant soft tissue swelling, mass, or fluid collection. Moderately severe multilevel endplate and facet joint degenerative change.Most prominent at C5-6 and C6-7. Minimal grade 1 retrolisthesis of C6 onC7. Moderately large anterior bridging osteophytes at all levels.. Laterally severe spinal stenosis at C6-C7 due to degenerative change.Moderate bilateral neuroforamen narrowing. Moderate spinal stenosis at C5-6 due to degenerative change with moderatebilateral neuroforamen narrowing.. Other disc spaces without gross spinal stenosis. Odontoid is intact. Occipital condyles intact. No evidence of fracture or malalignment. IMPRESSION: 1. No acute osseous abnormalities. 2. Moderately severe multilevel degenerative changes with spinal stenosisand neuroforamen narrowing, most prominent at C5-6 and C6-7. Considerfurther evaluation with MRI to better assess the degree of spinal stenosisand nerve root impingement. Referred By: NAS HERBERT V Interpreted By: Marito Mccurdy MD, 11/26/2024 7:29 AM us Nas Fulton MD CT Final Result from Last 3 Months Insurance CARE Care Teams Electrician Substation Relationship Specialty Start Date End Date Nas Herbert MD [facility] [address] [place] [address] PCP - General INTERNAL MEDICINE 03/30/23
== END 2024-12-14 14:17 | disposition home or self-care (01) ==
PROVIDERS: Visit Provider Internal Medicine
DX: M43.02 Spondylolysis, cervical region (principal); M43.06 Spondylolysis, lumbar region
CPT/HCPCS: 72141; 72148